=== PATIENT | female | born 1975 | race African-American/Black ===

== ENCOUNTER 2024-11-02 23:42 | Emergency (ER) | payer BC ==
[~2024-11-02] VITALS: Ht 157.5 cm; Wt 109.0 kg
[2024-11-02 23:56] VITALS: O2SAT 94
[2024-11-03] MEDS ORDERED: GUAI-453 MT (03:17)
[2024-11-03] MEDS ORDERED: ACET-2708 MT (03:17)
[2024-11-03 04:15] VITALS: BP 160/80; PULSE 98; RESP 18; TEMP 36.78072; O2SAT 94
[2024-11-03 04:18] LABS: CLARITY URINE CLEAR (CLEAR); COLOR URINE YELLOW (YELLOW); GLUCOSE URINE 3+ (NEGATIVE); KETONES URINE NEGATIVE (NEGATIVE); LEUKOCYTE ESTERASE URINE NEGATIVE (NEGATIVE); NITRITE URINE NEGATIVE (NEGATIVE); OCCULT BLOOD URINE 2+ (NEGATIVE); PH URINE 5.5 (4.5-8.0); PROTEIN URINE 4+ (NEGATIVE); SPECIFIC GRAVITY URINE 1.026 (1.005-1.030); UROBILINOGEN URINE 0.2 E.U./dL (0.2-1.0)
[2024-11-03 05:30] LABS: WBC URINE 15-25 /hpf (0-2)
[2024-11-03 05:31] LABS: SQUAMOUS EPITHELIAL CELL URINE FEW /lpf (RARE/1+)
[2024-11-03 05:32] LABS: BACTERIA URINE 1+
== END 2024-11-03 04:23 | disposition home or self-care (01) ==
LOC: ER 23:55
DX: B34.9 Viral infection, unspecified (principal); M19.90 Unspecified osteoarthritis, unspecified site; F03.90 Unspecified dementia, unspecified severity, without behavioral disturbance, psychotic disturbance, mood disturbance, and anxiety; Z88.8 Allergy status to other drugs, medicaments and biological substances
CPT/HCPCS: 81003; 81025; 82962; 99283